=== PATIENT | male | born 1985 | race Hispanic/Latino ===

== ENCOUNTER 2023-02-24 07:15 | Emergency (ER) | payer SELFPAY ==
[2023-02-24] MEDS ORDERED: Ondansetron PF 4 MG/2 ML Vial ONE (07:52)
[2023-02-24 08:02] LABS: #Basophils 0.1 thou/uL (0.0-0.2); #Eosinphils 0.4 thou/uL (0.0-0.7); #Monocytes 0.5 thou/uL (0.11-0.59); #Neutrophils 3.8 thou/uL (1.40-6.50); %Basophils 0.8 % (0.0-1.0); %Eosinophils 5.4 % (0.0-10.0); %Lymphocytes 26.4 % (21.0-51.0); %Monocytes 8.4 % (0.0-10.0); %Neutrophils 58.7 % (42.0-75.0); Hemoglobin 14.5 g/dL (14.0-18.0); Mean Corpuscular HGB CONC 34.1 g/dL (32.0-36.0); Mean Corpuscular Hemoglobin 32.2 pg (27.0-31.0); Mean Corpuscular Volume 94.4 fl (78.0-98.0); Platelet Count 221 10x3/uL (130-400); RBC Distribution Width 13.2 % (11.5-14.5); White Blood Cell (WBC) Count 6.4 10x3/uL (4.8-10.8)
[2023-02-24 08:25] LABS: ALT (SGPT) 15 U/L (8-55); AST (SGOT) 17 U/L (5-34); Albumin 4.2 g/dL (3.5-5.0); Alkaline Phosphatase 56 U/L (40-110); Anion Gap 12 mmol/L (10-20); BUN (Urea Nitrogen) 13 mg/dL (8.9-20.6); Bilirubin, Total 0.5 mg/dL (0.2-1.2); Calc. Creatinine Clearance 0 mL/min (70-130); Calcium 9.8 mg/dL (7.8-10.44); Carbon Dioxide 26 mmol/L (22-29); Chloride 107 mmol/L (98-107); Estimated GFR 83; Globulin 2.8 g/dL (2.4-3.5); Glucose 94 mg/dL (70-105); Sodium 141 mmol/L (136-145)
[2023-02-24 08:28] LABS: Bacteria/HPF None Seen HPF (None Seen); Bilirubin Negative (Negative); Blood, Urine Negative (Negative); CAUTI Indications for Culture Dysuria,urgency,freq; Clarity Clear (Clear); Glucose, Urine (Dipstick) Normal (Negative); Ketone, Urine Negative (Negative); Leukocyte 75 Leu/uL (Negative); Nitrite Negative (Negative); Protein, Urine (Dipstick) 10 mg/dL (Neg-Trace); RBC/HPF 0-3 HPF (0-3); Specific Gravity, Urine 1.015 (1.002-1.036); Squamous Epithelial 0-3 HPF (0-3); Urobilinogen Normal mg/dL (Less than 2)
[2023-02-24 08:29] LABS: Urine Culture Reflex Yes Yes
[2023-02-24] MEDS ORDERED: Ketorolac Tromethamine 30 MG/ML VIAL IVP SCH (08:30)
[2023-02-24] MEDS ORDERED: Acetaminophen 500 MG TAB ONE (09:53)
[2023-02-24 12:56] LABS: Chlam.trachomatis by PCR,Urine Not Detected (NotDetected); GC N.gonorrhoeae PCR,UrineVOID Not Detected (NotDetected)
== END 2023-02-24 10:19 | disposition home or self-care (01) ==
LOC: ERS 07:15
DX: N39.0 Urinary tract infection, site not specified (principal)
CPT/HCPCS: 36415; 74176; 80053; 81001; 85025; 87086; 87491; 87591; 96374; 96375; J1885; J2405

== ENCOUNTER 2023-04-08 06:25 | Inpatient (IN) | payer SELFPAY ==
[2023-04-08] MEDS ORDERED: Ketorolac Tromethamine 30 MG/ML VIAL ONE ×2 (06:34→19:25)
[2023-04-08] MEDS ORDERED: Ondansetron PF 4 MG/2 ML Vial ONE ×2 (07:13→19:25)
[2023-04-08 07:18] LABS: #Eosinphils 0.4 thou/uL (0.0-0.7); #Monocytes 0.8 thou/uL (0.11-0.59); #Neutrophils 4.2 thou/uL (1.40-6.50); %Basophils 0.5 % (0.0-1.0); %Eosinophils 4.5 % (0.0-10.0); %Lymphocytes 31.3 % (21.0-51.0); %Neutrophils 53.4 % (42.0-75.0); Hematocrit 42.3 % (42.0-52.0); Hemoglobin 14.6 g/dL (14.0-18.0); Mean Corpuscular HGB CONC 34.5 g/dL (32.0-36.0); Mean Corpuscular Hemoglobin 32.8 pg (27.0-31.0); Mean Corpuscular Volume 95.1 fl (78.0-98.0); Mean Platelet Volume 10.9 fL (7.4-10.4); Platelet Count 245 10x3/uL (130-400); Red Blood Cell (RBC) Count 4.45 mill/uL (4.70-6.10); White Blood Cell (WBC) Count 7.8 10x3/uL (4.8-10.8)
[2023-04-08 07:56] LABS: ALT (SGPT) 26 U/L (8-55); AST (SGOT) 26 U/L (5-34); Albumin 4.3 g/dL (3.5-5.0); Alkaline Phosphatase 66 U/L (40-110); Anion Gap 15 mmol/L (10-20); BUN (Urea Nitrogen) 12 mg/dL (8.9-20.6); Bilirubin, Total 0.7 mg/dL (0.2-1.2); Calc. Creatinine Clearance 0 mL/min (70-130); Calcium 9.5 mg/dL (7.8-10.44); Carbon Dioxide 22 mmol/L (22-29); Chloride 110 mmol/L (98-107); Estimated GFR 90; Globulin 2.6 g/dL (2.4-3.5); Glucose 86 mg/dL (70-105); Lipase 28 U/L (8-78); Protein, Total 6.9 g/dL (6.0-8.3); Sodium 143 mmol/L (136-145)
[2023-04-08 08:37] LABS: Bacteria/HPF None Seen HPF (None Seen); Bilirubin Negative (Negative); Blood, Urine 2+ (Negative); CAUTI Indications for Culture Pelvic or flank pain; Clarity Clear (Clear); Glucose, Urine (Dipstick) Normal (Negative); Ketone, Urine Negative (Negative); Leukocyte 75 Leu/uL (Negative); Nitrite Negative (Negative); Protein, Urine (Dipstick) Negative (Neg-Trace); RBC/HPF 21-50 HPF (0-3); Specific Gravity, Urine 1.014 (1.002-1.036); Squamous Epithelial None Seen HPF (0-3); Urobilinogen Normal mg/dL (Less than 2)
[2023-04-08 08:38] LABS: Urine Culture Reflex No No
[2023-04-08] MEDS ORDERED: Morphine 4 MG/ML VIAL ONE (08:51)
[2023-04-08] MEDS ORDERED: Ondansetron ODT 4 MG TAB PO PRN (09:21)
[2023-04-08] MEDS ORDERED: Acetaminophen 325 MG TAB PO PRN (09:21)
[2023-04-08] MEDS ORDERED: Ondansetron PF 4 MG/2 ML Vial IVP PRN (09:21)
[2023-04-08] MEDS ORDERED: Morphine 2 MG/ML VIAL SLOW IVP PRN (09:33)
[2023-04-08 11:54] VITALS: BMI 24.4
[2023-04-08] MEDS: Sodium Chloride 0.9% 1,000 ML IV SCH ×2 (14:48→23:09)
[2023-04-08] MEDS: cefTRIAXone\\ROCEPHIN 1 GM in Sodium Chloride 0.9% 100 ML IVPB SCH (14:48)
[2023-04-08] MEDS ORDERED: Iopamidol 30 ML ONE (17:53)
[2023-04-08] MEDS ORDERED: fentaNYL PF 100 MCG/2 ML SYRINGE ONE (19:06)
[2023-04-08] MEDS ORDERED: Lidocaine 2% 6 ML (Jelly) SYR ONE (19:09)
[2023-04-08] MEDS ORDERED: ePHEDrine Sulfate 50 MG/10 ML VIAL ONE (19:25)
[2023-04-08] MEDS ORDERED: Dexamethasone 20 MG/5 ML VIAL ONE (19:25)
[2023-04-08] MEDS ORDERED: Lidocaine 1% PF 5 ML VIAL ONE (19:25)
[2023-04-08] MEDS ORDERED: PROPOFOL 200 MG/20 ML VIAL ONE (19:25)
[2023-04-08] MEDS ORDERED: Hyoscyamine SL 0.125 MG TAB PO PRN (20:42)
[2023-04-08] MEDS ORDERED: Meperidine HCl/PF 25 MG/ML VIAL ONE (20:46)
[2023-04-08] MEDS ORDERED: fentaNYL 50 mcg/mL 1 mL Vial ONE ×2 (20:54→21:18)
[2023-04-08] MEDS: Ketorolac Tromethamine 30 MG/ML VIAL IVP PRN (23:06)
[2023-04-09] MEDS: Morphine 4 MG/ML VIAL SLOW IVP PRN ×5 (03:27→21:57)
[2023-04-09 06:24] LABS: #Monocytes 0.2 thou/uL (0.11-0.59); #Neutrophils 5.9 thou/uL (1.40-6.50); %Basophils 0.1 % (0.0-1.0); %Lymphocytes 13.6 % (21.0-51.0); %Monocytes 2.8 % (0.0-10.0); %Neutrophils 83.2 % (42.0-75.0); Hematocrit 41.7 % (42.0-52.0); Hemoglobin 13.9 g/dL (14.0-18.0); Mean Corpuscular HGB CONC 33.3 g/dL (32.0-36.0); Mean Corpuscular Hemoglobin 32.3 pg (27.0-31.0); Mean Platelet Volume 10.9 fL (7.4-10.4); Platelet Count 226 10x3/uL (130-400); White Blood Cell (WBC) Count 7.1 10x3/uL (4.8-10.8)
[2023-04-09] MEDS: Sodium Chloride 0.9% 1,000 ML IV SCH ×3 (06:33→19:53)
[2023-04-09 06:47] LABS: Anion Gap 10 mmol/L (10-20); BUN (Urea Nitrogen) 13 mg/dL (8.9-20.6); Calc. Creatinine Clearance 105 mL/min (70-130); Calcium 8.9 mg/dL (7.8-10.44); Carbon Dioxide 24 mmol/L (22-29); Chloride 109 mmol/L (98-107); Estimated GFR 88; Glucose 143 mg/dL (70-105); Potassium 4.7 mmol/L (3.5-5.1); Sodium 138 mmol/L (136-145)
[2023-04-09] MEDS: Sertraline 25 MG TAB PO SCH (07:58)
[2023-04-09] MEDS ORDERED: traZODone HCl 50 MG TAB PO SCH (09:00)
[2023-04-09] MEDS: Ketorolac Tromethamine 30 MG/ML VIAL IVP PRN ×2 (10:02→19:48)
[2023-04-09] MEDS: cefTRIAXone\\ROCEPHIN 1 GM in Sodium Chloride 0.9% 100 ML IVPB SCH (10:05)
[2023-04-09] MEDS: traZODone HCl 50 MG TAB PO SCH (19:48)
[2023-04-10] MEDS: Morphine 4 MG/ML VIAL SLOW IVP PRN ×3 (03:40→14:02)
[2023-04-10 06:01] LABS: #Eosinphils 0.2 thou/uL (0.0-0.7); #Monocytes 0.7 thou/uL (0.11-0.59); #Neutrophils 4.6 thou/uL (1.40-6.50); %Basophils 0.4 % (0.0-1.0); %Lymphocytes 35.4 % (21.0-51.0); %Monocytes 7.9 % (0.0-10.0); %Neutrophils 54.1 % (42.0-75.0); Hematocrit 38.3 % (42.0-52.0); Hemoglobin 12.8 g/dL (14.0-18.0); Mean Corpuscular HGB CONC 33.4 g/dL (32.0-36.0); Mean Corpuscular Hemoglobin 32.7 pg (27.0-31.0); Mean Platelet Volume 11.1 fL (7.4-10.4); Platelet Count 212 10x3/uL (130-400); RBC Distribution Width 14.5 % (11.5-14.5); Red Blood Cell (RBC) Count 3.91 mill/uL (4.70-6.10); White Blood Cell (WBC) Count 8.5 10x3/uL (4.8-10.8)
[2023-04-10 06:27] LABS: Anion Gap 7 mmol/L (10-20); BUN (Urea Nitrogen) 14 mg/dL (8.9-20.6); Calc. Creatinine Clearance 109 mL/min (70-130); Calcium 8.2 mg/dL (7.8-10.44); Carbon Dioxide 25 mmol/L (22-29); Estimated GFR 92; Glucose 94 mg/dL (70-105); Potassium 3.9 mmol/L (3.5-5.1); Sodium 139 mmol/L (136-145)
[2023-04-10 06:36] LABS: Chloride 111 mmol/L (98-107)
[2023-04-10] MEDS: Ketorolac Tromethamine 30 MG/ML VIAL IVP PRN ×2 (08:14→17:24)
[2023-04-10] MEDS: Sertraline 25 MG TAB PO SCH (08:16)
[2023-04-10] MEDS: Sodium Chloride 0.9% 1,000 ML IV SCH (08:18)
[2023-04-10] MEDS: cefTRIAXone\\ROCEPHIN 1 GM in Sodium Chloride 0.9% 100 ML IVPB SCH (10:00)
[2023-04-10] MEDS ORDERED: traMADol HCl 50 MG TAB PO PRN (19:27)
[2023-04-10] MEDS: traZODone HCl 50 MG TAB PO SCH (20:17)
[2023-04-11 06:34] LABS: #Eosinphils 0.3 thou/uL (0.0-0.7); #Monocytes 0.7 thou/uL (0.11-0.59); #Neutrophils 2.9 thou/uL (1.40-6.50); %Basophils 0.6 % (0.0-1.0); %Lymphocytes 39.1 % (21.0-51.0); %Monocytes 10.4 % (0.0-10.0); %Neutrophils 45.6 % (42.0-75.0); Hemoglobin 13.6 g/dL (14.0-18.0); Mean Corpuscular HGB CONC 33.2 g/dL (32.0-36.0); Mean Corpuscular Hemoglobin 32.2 pg (27.0-31.0); Mean Corpuscular Volume 97.2 fl (78.0-98.0); Mean Platelet Volume 10.8 fL (7.4-10.4); Platelet Count 214 10x3/uL (130-400); RBC Distribution Width 14.1 % (11.5-14.5); Red Blood Cell (RBC) Count 4.22 mill/uL (4.70-6.10); White Blood Cell (WBC) Count 6.4 10x3/uL (4.8-10.8)
[2023-04-11 06:59] LABS: Anion Gap 10 mmol/L (10-20); BUN (Urea Nitrogen) 14 mg/dL (8.9-20.6); Calc. Creatinine Clearance 115 mL/min (70-130); Carbon Dioxide 27 mmol/L (22-29); Chloride 107 mmol/L (98-107); Estimated GFR 98; Glucose 90 mg/dL (70-105); Potassium 4.3 mmol/L (3.5-5.1); Sodium 140 mmol/L (136-145)
[2023-04-11] MEDS: Sertraline 25 MG TAB PO SCH (08:30)
[2023-04-11 10:47] VITALS: BP 146/87; TEMP 97.9
== END 2023-04-11 10:51 | disposition home or self-care (01) | DRG 661 ==
LOC: ERS 06:25 → ERHOLD 09:21 → T4-B 13:33
PROVIDERS: ADMIT Family Medicine; ATTEND Family Medicine
PROC: 0TC68ZZ Extirpation of Matter from Right Ureter, Via Natural or Artificial Opening Endoscopic (ICD-10-PCS; principal; 2023-04-08)
PROC: 0T768DZ Dilation of Right Ureter with Intraluminal Device, Via Natural or Artificial Opening Endoscopic (ICD-10-PCS; 2023-04-08)
PROC: BT1D1ZZ Fluoroscopy of Right Kidney, Ureter and Bladder using Low Osmolar Contrast (ICD-10-PCS; 2023-04-08)
DX: N13.30 Unspecified hydronephrosis (principal); F41.9 Anxiety disorder, unspecified; E87.8 Other disorders of electrolyte and fluid balance, not elsewhere classified; Z91.041 Radiographic dye allergy status; Z79.899 Other long term (current) drug therapy
CPT/HCPCS: 36415; 74176; 74420; 80048; 80053; 81001; 82365; 83690; 85025; 88300; 96361; 96374; 96375; C1747; C1769; C2617; J0696; J1100; J1885; J2175; J2270; J2405; J2704; J3010; J3490; J7050; Q9967

== ENCOUNTER 2023-07-24 11:22 | Emergency (ER) | payer SELFPAY ==
[2023-07-24 12:09] LABS: #Eosinphils 0.3 thou/uL (0.0-0.7); #Monocytes 0.5 thou/uL (0.11-0.59); #Neutrophils 3.7 thou/uL (1.40-6.50); %Basophils 0.6 % (0.0-1.0); %Eosinophils 3.8 % (0.0-10.0); %Lymphocytes 31.5 % (21.0-51.0); %Monocytes 6.9 % (0.0-10.0); Hematocrit 45.3 % (42.0-52.0); Hemoglobin 15.5 g/dL (14.0-18.0); Mean Corpuscular HGB CONC 34.2 g/dL (32.0-36.0); Mean Corpuscular Hemoglobin 32.9 pg (27.0-31.0); Mean Corpuscular Volume 96.2 fl (78.0-98.0); Mean Platelet Volume 10.4 fL (7.4-10.4); Platelet Count 274 10x3/uL (130-400); RBC Distribution Width 13.1 % (11.5-14.5); Red Blood Cell (RBC) Count 4.71 mill/uL (4.70-6.10); White Blood Cell (WBC) Count 6.5 10x3/uL (4.8-10.8)
[2023-07-24] MEDS ORDERED: Ketorolac Tromethamine 30 MG/ML VIAL ONE (12:31)
[2023-07-24] MEDS ORDERED: Ondansetron PF 4 MG/2 ML Vial ONE (12:31)
[2023-07-24 12:38] LABS: ALT (SGPT) 25 U/L (8-55); AST (SGOT) 24 U/L (5-34); Albumin 4.6 g/dL (3.5-5.0); Alkaline Phosphatase 63 U/L (40-110); Anion Gap 14 mmol/L (10-20); BUN (Urea Nitrogen) 11 mg/dL (8.9-20.6); Bilirubin, Total 0.7 mg/dL (0.2-1.2); Calc. Creatinine Clearance 0 mL/min (70-130); Calcium 9.5 mg/dL (7.8-10.44); Carbon Dioxide 23 mmol/L (22-29); Chloride 108 mmol/L (98-107); Estimated GFR 104; Globulin 2.9 g/dL (2.4-3.5); Glucose 85 mg/dL (70-105); Lipase 25 U/L (8-78); Potassium 4.4 mmol/L (3.5-5.1); Protein, Total 7.5 g/dL (6.0-8.3); Sodium 141 mmol/L (136-145)
[2023-07-24 13:10] LABS: Bacteria/HPF None Seen HPF (None Seen); Bilirubin Negative (Negative); Blood, Urine Negative (Negative); CAUTI Indications for Culture Acute Hematuria; Clarity Clear (Clear); Glucose, Urine (Dipstick) Normal (Negative); Ketone, Urine Negative (Negative); Leukocyte Negative Leu/uL (Negative); Nitrite Negative (Negative); Protein, Urine (Dipstick) Negative (Neg-Trace); Specific Gravity, Urine 1.015 (1.002-1.036); Squamous Epithelial None Seen HPF (0-3); Urobilinogen Normal mg/dL (Less than 2)
[2023-07-24 13:11] LABS: Urine Culture Reflex No No
== END 2023-07-24 15:00 | disposition home or self-care (01) ==
LOC: ERS 11:22
DX: N13.2 Hydronephrosis with renal and ureteral calculous obstruction (principal); F17.290 Nicotine dependence, other tobacco product, uncomplicated
CPT/HCPCS: 36415; 74176; 80053; 81001; 83690; 85025; 96374; 96375; J1885; J2405